=== PATIENT | male | born 1955 | race Caucasian/White ===

== ENCOUNTER 2022-07-09 09:15 | Inpatient (IN) | payer MEDICARE, BC ==
[~2022-07-09] VITALS: Ht 180.3 cm; Wt 82.0 kg
[~2022-07-09 09:15] MED LIST: AMANTADINE HCL100 M1 PO; AMITRIPTYLINE50 MG PO; DOK COLACE100 MG PO; EXELON9.5 MG/24 T; LISINOPRIL40 MG PO; LORAZEPAM1 MG PO; PRILOSEC20 M1 PO; REMERON15 M2 PO; SINEMET 25-1001 EACH PO; TRAZODONE100 MG PO; VITAMIN D50000 I3 PO; XANAX0.5 MG PO; ZOLOFT25 MG PO
[2022-07-09] MEDS ORDERED: LIDODERM1 EACH T (11:09)
[2022-07-09] MEDS ORDERED: ZYPREXA10 M1 PO (11:11)
[2022-07-09] MEDS ORDERED: PROTONIX40 MG PO (11:12)
[2022-07-09] MEDS ORDERED: LOPRESSOR25 MG PO (11:13)
[2022-07-09] MEDS ORDERED: LINZESS290 MC1 PO (11:15)
[2022-07-09] MEDS ORDERED: CYMBALTA60 MG PO (11:16)
[2022-07-09] MEDS ORDERED: REQUIP2 MG PO (11:19)
[2022-07-09] MEDS ORDERED: TRILEPTAL150 MG PO (11:21)
[2022-07-09] MEDS ORDERED: COGENTIN0.5 MG PO (11:25)
[2022-07-09 15:53] VITALS: BP 128/80
[2022-07-09] MEDS ORDERED: ATIVAN0.5 MG PO (16:34)
[2022-07-09] MEDS ORDERED: BETHANECHOL CHL50 MG PO (16:35)
[2022-07-09] MEDS ORDERED: SEROQUEL25 MG PO (16:35)
[2022-07-09] MEDS ORDERED: SENNA8.6 MG PO (16:36)
[2022-07-09] MEDS ORDERED: MIRALAX17 GM PO (16:36)
[2022-07-09] MEDS ORDERED: MELATONIN5 M1 PO (16:37)
[2022-07-09] MEDS ORDERED: FLOMAX0.4 MG PO (16:38)
[2022-07-09 19:07] LABS: BILIRUBIN Negative (Negative); BLOOD Negative (Negative); CLARITY Clear (Clear); COLOR Yellow (Yellow); GLUCOSE Negative (Negative); KETONE Negative (Negative); LEUKO ESTERASE Negative (Negative); NITRITE Negative (Negative)
[2022-07-09 19:22] LABS: BACTERIA TRACE; EPITHELIAL CELLS 0-2; WBC 0-2 wbc/hpf (0-5)
[2022-07-09 20:00] VITALS: BP 136/87
[2022-07-10 07:31] LABS: BASO % 0.4 % (0.0-1.0); EOS # 0.1 10*3/uL (0.0-0.4); EOS % 1.8 % (1.0-4.0); HEMATOCRIT 43.5 % (42.0-52.0); LYMPH # 1.7 10*3/uL (1.3-4.4); LYMPH % 25.7 % (27.0-41.0); MEAN CORPUSCULAR HGB 30.3 pg (27.0-31.0); MEAN CORPUSCULAR HGB CONC 33.3 g/dl (33.0-37.0); MEAN PLATELET VOLUME 8.9 fl (9.6-12.3); MONO # 0.8 10*3/uL (0.1-1.0); MONO % 12.4 % (3.0-9.0); NEUT % 59.4 % (47.0-73.0); PLATELET COUNT AUTOMATED 396 10*3/uL (130-400); RED BLOOD COUNT 4.78 10*6/uL (4.50-5.90); RED CELL DISTRI WIDTH 12.8 % (0-14.5); WHITE BLOOD COUNT 6.8 10*3/uL (4.8-10.8)
[2022-07-10 07:43] VITALS: BP 139/66
[2022-07-10 07:56] LABS: ALKALINE PHOSPHATASE 211 U/L (45-117); BUN 12 mg/dl (7-24); CHLORIDE 108 mmol/L (98-107); CHOLESTEROL 167 mg/dL (<200); CREATININE 1.05 mg/dL (0.70-1.30); LDL CHOLESTEROL 91 mg/dL (9-159); SGOT/AST 13 IU/L (3-35); SGPT/ALT 17 U/L (12-78); SODIUM 142 mmol/L (136-145); TOTAL PROTEIN 7.6 gm/dL (6.4-8.2); TRIGLYCERIDES 120 mg/dl (<150)
[2022-07-10 12:34] LABS: VITAMIN D, 25-HYDROXY 18.1 ng/mL (30-100)
[2022-07-10 20:00] VITALS: BP 140/86
[2022-07-11 07:27] VITALS: BP 158/84
[2022-07-11 19:58] VITALS: BP 106/67
[2022-07-12 08:00] VITALS: BP 145/82
[2022-07-12 20:00] VITALS: BP 120/80
[2022-07-13 08:34] VITALS: BP 130/72
[2022-07-13 20:00] VITALS: BP 143/79
[2022-07-14 07:30] VITALS: BP 126/75
[2022-07-14 07:59] LABS: BASO % 0.5 % (0.0-1.0); EOS # 0.1 10*3/uL (0.0-0.4); EOS % 2.3 % (1.0-4.0); HEMATOCRIT 44.1 % (42.0-52.0); LYMPH # 1.6 10*3/uL (1.3-4.4); MEAN CELL VOLUME 92.1 fl (80.0-94.0); MEAN CORPUSCULAR HGB 31.3 pg (27.0-31.0); MEAN PLATELET VOLUME 9.4 fl (9.6-12.3); MONO # 0.8 10*3/uL (0.1-1.0); MONO % 12.9 % (3.0-9.0); NEUT # 3.6 10*3/uL (2.3-7.9); NEUT % 57.8 % (47.0-73.0); PLATELET COUNT AUTOMATED 363 10*3/uL (130-400); RED BLOOD COUNT 4.79 10*6/uL (4.50-5.90); RED CELL DISTRI WIDTH 12.9 % (0-14.5); WHITE BLOOD COUNT 6.2 10*3/uL (4.8-10.8)
[2022-07-14 08:21] LABS: ALKALINE PHOSPHATASE 194 U/L (45-117); BUN 18 mg/dl (7-24); CHLORIDE 108 mmol/L (98-107); CREATININE 1.12 mg/dL (0.70-1.30); FREE T4 1.14 ng/dl (0.76-1.46); POTASSIUM 3.9 mmol/L (3.5-5.1); SGOT/AST 13 IU/L (3-35); SGPT/ALT 19 U/L (12-78); SODIUM 141 mmol/L (136-145); TOTAL PROTEIN 7.3 gm/dL (6.4-8.2)
[2022-07-14 20:00] VITALS: BP 116/73
[2022-07-15 08:30] VITALS: BP 116/66
[2022-07-15 20:00] VITALS: BP 122/86
[2022-07-16 08:00] VITALS: BP 132/77
[2022-07-16 20:00] VITALS: BP 116/58
[2022-07-17 08:00] VITALS: BP 143/88
[2022-07-17 20:00] VITALS: BP 125/73
[2022-07-18 08:00] VITALS: BP 102/52; BP 109/69
[2022-07-18 20:00] VITALS: BP 135/88
[2022-07-19 08:00] VITALS: BP 102/69
[2022-07-19] MEDS ORDERED: VITAMIN D3125 MC1 PO (10:04)
[2022-07-19] MEDS ORDERED: RAMELTEON8 MG PO (10:04)
[2022-07-19] MEDS ORDERED: HOMEMED PO (10:04)
[2022-07-19] MEDS ORDERED: MIRTAZAPINE45 MG PO (10:04)
== END 2022-07-19 13:18 | disposition home or self-care (01) | DRG 885 ==
LOC: 3N 09:15
PROVIDERS: Registered Nurse; ADMIT Psychiatry & Neurology Psychiatry; ATTEND Psychiatry & Neurology Psychiatry
PROC: GZ56ZZZ Individual Psychotherapy, Supportive (ICD-10-PCS; principal; 2022-07-12)
PROC: GZHZZZZ Group Psychotherapy (ICD-10-PCS; 2022-07-12)
DX: F33.3 Major depressive disorder, recurrent, severe with psychotic symptoms (principal); E44.0 Moderate protein-calorie malnutrition; G20 Parkinson's disease; F28 Other psychotic disorder not due to a substance or known physiological condition; F41.9 Anxiety disorder, unspecified; K52.9 Noninfective gastroenteritis and colitis, unspecified; K21.9 Gastro-esophageal reflux disease without esophagitis; I10 Essential (primary) hypertension; G47.33 Obstructive sleep apnea (adult) (pediatric); E55.9 Vitamin D deficiency, unspecified; K27.9 Peptic ulcer, site unspecified, unspecified as acute or chronic, without hemorrhage or perforation; R74.01 Elevation of levels of liver transaminase levels; R73.9 Hyperglycemia, unspecified; E87.8 Other disorders of electrolyte and fluid balance, not elsewhere classified; Z90.49 Acquired absence of other specified parts of digestive tract; Z88.8 Allergy status to other drugs, medicaments and biological substances; Z88.6 Allergy status to analgesic agent; Z91.041 Radiographic dye allergy status; Z68.25 Body mass index [BMI] 25.0-25.9, adult